=== PATIENT | female | born 1985 | race Caucasian/White ===

== ENCOUNTER → 2021-10-09 00:01 | Outpatient (BNVA) | payer OTHER, MEDICAID, SELFPAY | PROVIDERS: PCP Nurse Practitioner Family; Visit Provider Nurse Practitioner Family | DX: N92.0 Excessive and frequent menstruation with regular cycle (principal); R53.83 Other fatigue; Z72.0 Tobacco use; Z13.1 Encounter for screening for diabetes mellitus; G44.329 Chronic post-traumatic headache, not intractable | CPT/HCPCS: 80053; 82607; 82728; 82746; 83550; 84439; 84443; 85025 ==

== ENCOUNTER 2022-02-08 08:43 | Outpatient (CLI) | payer MEDICAID, SELFPAY ==
--- NOTE | 2022-02-08 09:30 | MR_ITS ---
WS: [id number] MRI BRAIN WITHOUT CONTRAST HISTORY: Migraines progressively worse. COMPARISON: None available. TECHNIQUE: Diffusion imaging, multiplanar T1, T2 and FLAIR imaging obtained. No acute infarct or hemorrhage. Focal cortical increased T2 and FLAIR signal involving the anterior R IGHT frontal cortex. Abnormal signal extends over a width of 2.1 cm x 0.8 cm depth. No associated hem osiderin. Signal abnormality extends into the RIGHT frontal straight gyrus. There are a few tiny area s of low signal suggesting hemosiderin. Additional very slight signal abnormality involving the anter ior RIGHT temporal lobe cortex. No definite hemosiderin. No remote or acute infarcts are volume loss. Ventricles and extra-axial spaces are normal. No inferior displacement of cerebellar tonsils. The sella turcica and pituitary gland are unremarkabl e. Dural venous sinuses and [place] demonstrate no abnormality on this unenhanced studies. Paranasal sinuses: Mixed heterogeneity in the LEFT maxillary sinus. No air-fluid level. Mastoid air cells: Increased fluid in the LEFT mastoid air cells. No signal abnormality along the int ernal auditory canal. Calvarium and scalp: Intact. MR/MR head wo con* [id number] IMPRESSION: 1. No acute infarct. 2. Signal abnormality involving the anterior RIGHT frontal lobe cortex with in volvement of the straight gyrus and also the anterior RIGHT temporal lobe [place] x. Distribution of signal abnormalities and history suggest these are probably posttraumatic changes within the brain. Consider 3 month MRI follow-up with and without contrast to confirm no progression of findings and these changes are s table. No prior studies for comparison. 3. No hydrocephalus. 4. LEFT mastoid air cell effusion and LEFT maxillary sinus disease.
== END 2022-02-08 08:44 | disposition home or self-care (01) ==
PROVIDERS: PCP Nurse Practitioner Family; Visit Provider Nurse Practitioner Family
DX: G43.109 Migraine with aura, not intractable, without status migrainosus (principal)
CPT/HCPCS: 70551

== ENCOUNTER 2022-08-20 13:17 | Outpatient (CLI) | payer MEDICAID, SELFPAY ==
--- NOTE | 2022-08-20 13:45 | MR_ITS ---
WS: [id number] MRI HEAD WITH CONTRAST TECHNIQUE: Sagittal T1, T2 axial, T2 axial FLAIR, axial susceptibility weighted imaging, axial diffus ion weighted images, and coronal T2 images were obtained. Pre and post-T1 axial and post T1 coronal i mages. ADC and FSPGR images. CLINICAL INFORMATION: abnormal MRI of head in December COMPARISON: MRI February 08, 2022 FINDINGS: No evidence of restricted diffusion to suggest acute ischemia. Ventricular system and basal cisterns are patent. Stable encephalomalacia and gliosis in the RIGHT frontal lobe extending into the inferior parasagittal frontal lobe likely due to prior trauma. This is unchanged in appearance compared to pr evious. Additional encephalomalacia and gliosis in the RIGHT anterior temporal lobe due to prior trauma. This is unchanged compared to previous. No abnormal gadolinium enhancement. A tiny amount of hemosiderin in the RIGHT parasagittal frontal lobe and RIGHT anterior temporal lobe. Normal optic chiasm and pituitary infundibulum. Temporal lobes and hippocampal formations are normal in appearance. Normal cavernous sinuses and Meckel's cave. No abnormal intracranial enhancement. LEFT mastoid effusion. Retention cyst with mucosal thickening LEFT maxillary sinus. RIGHT mastoid air cells are well aerated. Normal posterior nasopharynx. MR/MR head wo/w con [id number] IMPRESSION: 1. No evidence of restricted diffusion to suggest acute ischemia. 2. Stable areas of encephalomalacia and gliosis in the RIGHT frontal lobe and RIGHT anterior temporal lobe unchanged from previous compatible with prior trau ma. Tiny amount of hemosiderin in this locations. 3. No abnormal gadolinium enhancement. 4. LEFT mastoid effusion. Mucosal thickening with retention cyst in LEFT maxil [place] sinus. 5. No other significant changes compared to previous.
[2022-08-20] MEDS: gadobenate dimeglumine 20 mL vial IV (14:27)
== END 2022-08-20 13:18 | disposition home or self-care (01) ==
PROVIDERS: PCP Family Medicine; Visit Provider Family Medicine
DX: S06.9X9A Unspecified intracranial injury with loss of consciousness of unspecified duration, initial encounter (principal); X58.XXXA Exposure to other specified factors, initial encounter; G93.89 Other specified disorders of brain; G93.6 Cerebral edema; J34.1 Cyst and mucocele of nose and nasal sinus
CPT/HCPCS: 70553; A9577

== ENCOUNTER 2024-01-10 08:44 | Emergency (ER) | payer MEDICAID, SELFPAY ==
[2024-01-10 08:55] VITALS: BP 134/79; PULSE 81; TEMP 37; O2SAT 100; BMI 28.1
[2024-01-10 09:02] VITALS: BP 134/79; PULSE 86; O2SAT 100
--- NOTE | 2024-01-10 10:02 | ED_ITS ---
HPI - 2 General: Chief complaint: Vaginal Bleeding Stated complaint: 7 weeks preg and bleeding Time Seen by Provider: 01/10/24 09:18 Source: patient Mode of arrival: ambulatory Limitations: no limitations History of Present Illness: This patient presents to the emergency department because of concerns about vaginal bleeding. She stated she noted some spotting on the toilet paper last night and then again today. She denies any past passage of clots, lightheadedness dizziness etc. She denies any abdominal or pelvic cramping or pain. She denies any fevers or chills. She states her last intercourse was 2 nights ago. She is a A0. Her last menstrual period was 22 November. Previous vaginal deliveries without complications. No abdominal surgeries. No dysuria or back or flank pain. MD Complaint: vaginal bleeding Vaginal bleeding: light Associated symptoms: Deny abdominal pain, dysuria, headache(s), nausea, syncope, vaginal discharge or vomiting Related Data: : 4 Review of Systems 2 Const: Denies: fever(s) or chills ENMT: Denies: odynophagia or nasal congestion Card: Denies: chest pain, palpitations, syncope or pre-syncope Resp: Denies: dyspnea, productive cough or non-productive cough GI: Denies: abdominal pain, nausea, vomiting or diarrhea : Reports: vaginal bleeding; Denies: flank pain, dysuria, urinary frequency or vaginal discharge Musc: Denies: back pain, extremity pain or extremity swelling Skin/Breast: Denies: rash Neuro: Denies: headache(s), numbness in extremities or weakness in extremities [place]/Lymph: Denies: easy bruising or easy bleeding PFSH ED 2 PFSH: Medical History Traumatic brain injury with delayed recovery November 2020 Chronic headaches Hearing loss Surgical History Hx of breast augmentation Family History Father Diabetes Mother Hypothyroidism Sister Hypothyroidism Social History Smoking and tobacco/nicotine status: current every day tobacco/nicotine user cigarettes Quit status (tobacco/nicotine): has tried quititng Alcohol intake: former Adopted: No Marital status: Number of children: 3 service: No Female Reproductive History: : 4 Para: 3 Physical Exam 2 Narrative: EXAM NARRATIVE: She is alert appears to be in no acute distress and comfortable and cooperative. Const: COMMON NORMALS: no acute distress, average body habitus and patient oriented x3 GENERAL APPEARANCE: cooperative and comfortable HENMT: COMMON NORMALS: normocephalic, Normal nasal mucous membranes and turbinates present, moist oral mucous membranes and oropharynx normal HEAD & SCALP: normocephalic NOSE: Normal nasal mucous membranes and turbinates present Eye: COMMON NORMALS: Equal, round and reactive pupils present and EOMs intact bilaterally PUPIL: Yes Equal, round and reactive pupils present Neck/C-Spine: COMMON NORMALS: full ROM and no lymphadenopathy Resp: COMMON NORMALS: normal respiratory effort, No retractions, No use of accessory muscles and clear to auscultation bilaterally AUSCULTATION: clear to auscultation bilaterally Cardio: COMMON NORMALS: regular rate, regular rhythm, No murmurs present (Cardio) and Peripheral pulses 2+ throughout RATE: regular rate RHYTHM: r egular rhythm PERIPHERAL PULSES: Peripheral pulses 2+ throughout GI: COMMON NORMALS: Normal to inspection, nondistended, normoactive bowel sounds present, Soft to palpation, non-tender, No hepatosplenomegaly present and no masses PALPATION: Yes Soft to palpation and Yes No hepatosplenomegaly present : COMMON NORMALS: Yes no CVA tenderness BLADDER/KIDNEY EXAM: Yes no CVA tenderness Back/Pelvis: COMMON NORMALS: no CVA tenderness, thoracic and lumbar spine normal to inspection, no thoracic nor lumbar tenderness and thoraco-lumbar ROM normal Extremity: COMMON NORMALS: normal to inspection, full ROM, capillary refill normal and no joint enlargement Neuro: COMMON NORMALS: patient oriented x3, moves all extremities and no focal motor deficits Psych: COMMON NORMALS: mental status grossly normal Skin: COMMON NORMALS: no rashes or lesions noted, no wounds and turgor normal GENERAL SKIN EXAM: no rashes or lesions noted and turgor normal Course 2 Reevaluation(s): Reevaluation #1: Discussed current findings there implications and limitations. She is currently clinically stable. We discussed the need for OB follow-up. She has an feed elevator worker in [place] and we recommended that she call them on Friday to get a repeat hCG level and subsequent imaging as needed. We also discussed return precautions and answered all questions Time: 11:43 Vital Signs: Vital signs: Vital Signs Temperature 98.6 F 01/10/24 08:55 Pulse Rate 72 01/10/24 12:06 Blood Pressure 102/59 01/10/24 12:06 Pulse Oximetry 100 01/10/24 12:06 Oxygen Delivery Me thod Room Air 01/10/24 12:06 MDM - OB/Uterine Contractions Medical Decision Making Patient with last menstrual period of 22 November presented with vaginal spotting without any associated pain or cramping. History is that she is a . Rh status was unknown. Clinical examination is reassuring no evidence of tachycardia hypotension and no abdominal tenderness. Beta-hCG, CBC and transvaginal ultrasound obtained. Ruling out possible ectopic versus a spontaneous AB versus a missed AB versus an IUP. At this point she is clinically stable with a hCG just they have of a progressive however no definitive IUP seen on TV ultrasound. Low risk for ectopic at this time given her history of no fertility drugs no history of STDs etc. and she is clinically stable and has no free fluid of significance in her posterior cul-de-sac. She is Rh+ therefore RhoGAM not indicated. Plan will be to discharge her in a stable condition for 48 to 72-hour follow-up for hCG and and subsequent additional imaging as indicated. We also discussed return precautions to include development of pelvic or abdominal pain, increased bleeding or other concerns. Also recommended pelvic rest until she is adjudicated by her feed elevator worker. Lab Data I reviewed the patient's lab results. 01/10/24 09:58 01/10/24 09:58 Radiology Impressions Obstetrics Ultrasound 01/10/24 10:09 IMPRESSION: 1. Cystic focus at the uterine fundus most likely representing gestational sac shows mean diameter of 6.1 mm, which would yield an estimated ultrasound gestational age of 5 weeks 2 days. No yolk sac or pole visualized. Recommend close clinical, laboratory, and sonographic follow-up. 2. Presumed right ovarian corpus luteum. Laboratory Results WBC 5.40 10^3/uL (3.29-11.43) 01/10/24 09:58 RBC 4.20 10^6/uL (3.85-5.65) 01/10/24 09:58 Hgb 12.80 g/dL (11.27-16.99) 01/10/24 09:58 Hct 39.2 % (36-47) 01/10/24 09:58 MCV 93.3 fl (85-98) 01/10/24 09:58 MCH 30.5 pg (27-33) 01/10/24 09:58 MCHC 32.7 g/dL (30-55) 01/10/24 09:58 RDW 12.3 % (12.1-15.1) 01/10/24 09:58 Plt Count 260 10^3/cmm (157-399) 01/10/24 09:58 MPV 10.0 fL (7.4-10.4) 01/10/24 09:58 Neut % (Auto) 59.9 % 01/10/24 09:58 Lymph % (Auto) 31.9 % 01/10/24 09:58 [place] % (Auto) 5.2 % 01/10/24 09:58 Eos % (Auto) 1.9 % 01/10/24 09:58 Baso % (Auto) 0.9 % 01/10/24 09:58 Neut # (Auto) 3.24 10^3/uL (1.8-7.7) 01/10/24 09:58 Lymph # (Auto) 1.7 10^3/uL (0.8-4.8) 01/10/24 09:58 [place] # (Auto) 0.3 10^3/uL (0.2-0.9) 01/10/24 09:58 Eos # (Auto) 0.1 10^3/uL (0.0-0.8) 01/10/24 09:58 Baso # (Auto) 0.1 10^3/uL (0.0-0.1) 01/10/24 09:58 Nucleated RBC % (auto) 0 % 01/10/24 09:58 Nucleated RBCs # 0.0 /100WBC 01/10/24 09:58 Sodium 139 mmol/L (136-145) 01/10/24 09:58 Potassium 3.8 mmol/L (3.5-5.1) 01/10/24 09:58 Chloride 107 mmol/L (98-107) 01/10/24 09:58 Carbon Dioxide 20 mmol/L (22-29) L 01/10/24 09:58 Anion Gap 15.8 (5-19) 01/10/24 09:58 BUN 6 mg/dL (6-20) 01/10/24 09:58 Creatinine 0.7 mg/dL (0.5-0.9) 01/10/24 09:58 GFR Calculation 93.2 mL/min (90-130) 01/10/24 09:58 Glucose 98 mg/dL (65-115) 01/10/24 09:58 Calculated Osmolality 286 mOsm/kg (285-295) 01/10/24 09:58 Calcium 9.1 mg/dL (8.5-10.5) 01/10/24 09:58 Total Bilirubin 0.5 mg/dL (0.15-1.2) 01/10/24 09:58 AST 12 U/L (0-32) 01/10/24 09:58 ALT 10 U/L (0-33) 01/10/24 09:58 Alkaline Phosphatase 67 U/L (35-105) 01/10/24 09:58 Total Protein 7.0 g/dL (6.6-8.7) 01/10/24 09:58 Albumin 4.3 g/dL (3.5-5.2) 01/10/24 09:58 Globulin 2.7 g/dL (1.3-4.6) 01/10/24 09:58 Ser , Semi-Qnt 2140.00 mIU/mL 01/10/24 09:58 Blood Type O Positive 01/10/24 10:15 Rho(D) Type Rh positive 01/10/24 10:15 All radiology interpretation(s) finalized by discharge ED provider radiology interpretation(s): Verbal report from computer engineering technologist of transvaginal ultrasound showed a gestational sac measuring 5 weeks 2 days. No definite IUP at this time. No extrauterine masses other than the left cyst consistent with a corpus luteum cyst. No free fluid noted. Official radiology review to follow Discharge Plan Discharge Patient Disposition: Home Clinical Impression: Antepartum bleeding, first trimester Condition: Stable Prescriptions: No Action acetaminophen [Tylenol] 325 mg capsule 325 mg PO .prn PRN Zyrtec 10 mg capsule 10 mg PO DAILY PRN naproxen 250 mg tablet 250 mg PO BID PRN (Reason: pain) Qty: 90 3RF Rx Instructions: 2 tablets at onset of headache, May take additional 1 tablet every 8 hours as neeeded. amitriptyline 75 mg tablet 75 mg PO DAILY Qty: 30 3RF topiramate 50 mg tablet See Rx Instructions .ROUTE .COMPLEX Qty: 60 1RF Dose Instruction: TAKE 1 TABLET BY MOUTH TWICE DAILY Rx Instructions: TAKE 1 TABLET BY MOUTH TWICE DAILY sumatriptan succinate 100 mg tablet See Rx Instructions .ROUTE .COMPLEX Qty: 9 1RF Dose Instruction: TAKE 1 TABLET BY MOUTH AT ONSET OF HEADACHE, IF NO RELIEF MAY REPEAT ONE TABLET AFTER AT LEAST TWO HOURS. MAX OF TWO TABLETS PER 24 HOURS Rx Instructions: TAKE 1 TABLET BY MOUTH AT ONSET OF HEADACHE, IF NO RELIEF MAY REPEAT ONE TABLET AFTER AT LEAST TWO HOURS. MAX OF TWO TABLETS PER 24 HOURS Discharge Orders: Discharge ED (Routine); Ordered 01/10/24 Ordered By: Tone Delgadillo Referrals: Daisha Olson DO [Primary Care Provider] - Discharge Activity: Limit activity as instructed Patient Instructions: Opioid Safety, Pain Management Activity Restrictions/Additional Instructions: As we discussed your ultrasound did not show a baby within the gestational sac but that sometimes will occur early in . There was no evidence of other more serious condition such as a outside the uterus etc. at this time. You should call your feed elevator worker's office on Friday morning to review your emergency department visit and request a repeat test level Friday or Friday. If in the meantime you develop increasing bleeding, passage of clots, development of pelvic pain or any other concerns you are welcome to return to this or the nearest emergency department. We also recommend abstaining from sexual intercourse, tampon use etc. Coding Level of Care Code ED Cinder Pitman for Andreina Alvares
[2024-01-10 10:03] LABS: Basophils # 0.1 10^3/uL (0.0-0.1); Basophils % 0.9 %; Eosinophils # 0.1 10^3/uL (0.0-0.8); Eosinophils % 1.9 %; Hematocrit 39.2 % (36-47); Lymphocytes # 1.7 10^3/uL (0.8-4.8); Lymphocytes % 31.9 %; Mean Corpuscular HGB Conc 32.7 g/dL (30-55); Mean Corpuscular Hemoglobin 30.5 pg (27-33); Mean Corpuscular Volume 93.3 fl (85-98); Monocytes # 0.3 10^3/uL (0.2-0.9); Monocytes % 5.2 %; Neutrophils # 3.24 10^3/uL (1.8-7.7); Neutrophils % 59.9 %; Nucleated Red Blood Cells % 0 %; Platelet Count 260 10^3/cmm (157-399); Red Cell Distribution Width 12.3 % (12.1-15.1)
--- NOTE | 2024-01-10 10:09 | USR_ITS ---
PROCEDURE INFORMATION: Exam: US , Transvaginal Exam date and time: 01/10/2024 11:19 AM Clinical indication: Lmp or gestational age (in weeks): 5w2d; Antepartum complications; Bleeding; Additional info: Lmp 22 November vag bleeding w/o pain TECHNIQUE: Imaging protocol: Real-time transvaginal obstetrical ultrasound of the maternal pelvis with image documentation. Transvaginal imaging was used for better evaluation of the fetus, adnexa, and/or cervix. COMPARISON: No relevant prior studies available. FINDINGS: Gestation: Intrauterine cystic focus at the fundus measures 7.1 x 6.6 x 4.5 mm yielding mean diameter of 6.1 mm. No yolk sac or pole identified. heart rate: Not applicable. Placenta: Unremarkable. No subchorionic bleed. Amniotic fluid (Qualitative): Unremarkable for age. BIOMETRY: Gestational age (AUA): 5 weeks 2 days based on presumed mean sac diameter. MATERNAL: Uterus: Unremarkable. Cervix: Small nabothian cysts. Otherwise unremarkable. Endocervical canal is closed. Right ovary/adnexa: Ovary measures 2.2 x 1.9 x 2.4 cm for a calculated volume of 5.1 cc. Normal arterial and venous waveforms on duplex. Thick rimmed 1 cm anechoic cystic structure compatible with corpus luteum. Left ovary/adnexa: Obscured by lack of adequate acoustic window. Intraperitoneal space: No intraperitoneal free fluid. US/US OB <=14 wk fetus w transvag IMPRESSION: 1. Cystic focus at the uterine fundus most likely representing gestational sac shows mean diameter of 6.1 mm, which would yield an estimated ultrasound gestational age of 5 weeks 2 days. No yolk sac or pole visualized. Recommend close clinical, laboratory, and sonographic follow-up. 2. Presumed right ovarian corpus luteum.
[2024-01-10 10:31] LABS: Alanine Aminotransferase 10 U/L (0-33); Albumin Level 4.3 g/dL (3.5-5.2); Alkaline Phosphatase 67 U/L (35-105); Anion Gap 15.8 (5-19); Aspartate Amino Transferase 12 U/L (0-32); Blood Urea Nitrogen 6 mg/dL (6-20); Calcium 9.1 mg/dL (8.5-10.5); Carbon Dioxide 20 mmol/L (22-29); Chloride 107 mmol/L (98-107); Creatinine Clr Calc Pharmacy 110.4855; Globulin 2.7 g/dL (1.3-4.6); Glomerular Filtration Rate 93.2 mL/min (90-130); Glucose 98 mg/dL (65-115); Osmolality Calculated 286 mOsm/kg (285-295); Potassium 3.8 mmol/L (3.5-5.1); Sodium 139 mmol/L (136-145); Total Bilirubin 0.5 mg/dL (0.15-1.2)
[2024-01-10 12:06] VITALS: BP 102/59; PULSE 72; O2SAT 100
[2024-01-10 13:02] VITALS: BP 110/61; PULSE 80; RESP 18; O2SAT 99
== END 2024-01-10 13:01 | disposition home or self-care (01) ==
PROVIDERS: Family Medicine; Emergency Provider Emergency Medicine; PCP Family Medicine
DX: O46.91 Antepartum hemorrhage, unspecified, first trimester (principal); Z3A.01 Less than 8 weeks gestation of pregnancy; O99.331 Smoking (tobacco) complicating pregnancy, first trimester; F17.210 Nicotine dependence, cigarettes, uncomplicated
CPT/HCPCS: 36415; 76801; 76817; 80053; 84702; 85025; 86900; 99284

== ENCOUNTER → 2025-04-13 08:28 | Outpatient (BNVA) | payer MEDICAID, SELFPAY | PROVIDERS: PCP Family Medicine; Visit Provider Obstetrics & Gynecology | DX: N92.6 Irregular menstruation, unspecified (principal) | CPT/HCPCS: 81025 ==

== ENCOUNTER → 2025-04-21 10:10 | Outpatient (BNVA) | payer MEDICAID, SELFPAY | PROVIDERS: PCP Family Medicine; Visit Provider Nurse Practitioner Women's Health | DX: O09.521 Supervision of elderly multigravida, first trimester (principal); Z3A.01 Less than 8 weeks gestation of pregnancy | CPT/HCPCS: 84702 ==

== ENCOUNTER → 2025-04-25 11:21 | Outpatient (BNVA) | payer MEDICAID, SELFPAY | PROVIDERS: PCP Family Medicine; Visit Provider Nurse Practitioner Women's Health | DX: O09.521 Supervision of elderly multigravida, first trimester (principal) | CPT/HCPCS: 84702 ==

== ENCOUNTER → 2025-05-02 13:16 | Outpatient (BNVA) | payer MEDICAID, SELFPAY | PROVIDERS: PCP Family Medicine; Visit Provider Obstetrics & Gynecology | DX: Z36.9 Encounter for antenatal screening, unspecified (principal); Z3A.14 14 weeks gestation of pregnancy | CPT/HCPCS: 76801; 76802 ==

== ENCOUNTER → 2025-05-19 14:21 | Outpatient (BNVA) | payer MEDICAID, SELFPAY | PROVIDERS: PCP Family Medicine; Visit Provider Obstetrics & Gynecology | DX: O09.521 Supervision of elderly multigravida, first trimester (principal); O02.1 Missed abortion; Z3A.01 Less than 8 weeks gestation of pregnancy | CPT/HCPCS: 84315; 85025; 86850; 86900 ==

== ENCOUNTER → 2025-05-24 11:35 | Outpatient (BNVA) | payer MEDICAID, SELFPAY | PROVIDERS: PCP Family Medicine; Visit Provider Obstetrics & Gynecology | DX: O03.9 Complete or unspecified spontaneous abortion without complication (principal) | CPT/HCPCS: 84702 ==